=== PATIENT | male | born 2005 | race African-American/Black ===

== ENCOUNTER → 2023-10-15 | Emergency (ER) | payer OTHER, SELFPAY ==
[~2023-10-15] MED LIST: NA CHLORIDE 0.9% 1,000 ML ONE; ONDANSETRON 4 MG/2 ML VIAL ONE; cloNIDine HCL 0.1 MG TAB ONE
--- OUTSIDE RECORDS SUMMARY | 2023-10-15 03:43 | XMS REPORT | Continuity of Care Document ---
Author Name Unknown Address [address] [facility] [address] [place] [address] [facility] Address [address] [facility] [address] [place] [address] Care Team Providers Care Assistant [employer] Name Role Phone PALOMO MORALES Primary Care Physician Unavail able ROSE FERNÁNDEZ Attending Clinician Unavailable Rose Schmitz Attending Clinician Doctor Unassigned, Ursa Attending Clinician U PALOMO Fam Attending Clinician UnavailÁNGEL Calero Attending Clinician Unavailable Pob1, Acute Care Clinic Attending Clinician Unav ailable Lab, Adc Fam Pob I Attending Clinician Unavailab HINA Roberto Attending Clinician Unavailable Arabella Mcdowell MD Attending Clinician [phone]- [phone] PALOMO MORALES Admitting Clinician Unavailadelfo e Payers Payer Name Policy Type Policy Number Effective Date Expirati on Date Source [facility] [id number] 2017 00:00:00 2 W [id number] Problems Condition Name Condition Details Condition Category Status Onset Date Resolution Date Last Treatment Date Treating Clinician Comments Source No known active problems No known active problems Disease Univers [facility] Allergies, Adverse Reactions, Alerts Allergy Name Allergy Type Status Severity Reaction(s) Onset Date Inactive Date Treating Clinician Comments Source Denies latex allergy Miscella neous Allergy Active U Not Specified 2020-10 05:21: 59 Michelle Read l Denies latex allergy Miscella neous Allergy Active U Not Specified 2020-10 05:21: 59 Michelle Read l Denies latex allergy Miscella neous Allergy Active U Not Specified 2020-10 05:21: 59 Michelle Read l No Known Allergie s NA Active 2020-10 03:09: 31 Michelle teague Memoria l NO KNOWN ALLERGIE S Drug Class Active [facility] Social History Social Habit Start Date Stop Date Quantity Comments Source Exposure to SARS-CoV-2 (event) 2022-11-12 00:00:00 2022-11-22 15:50:00 Not sure [facility] Tobacco use and exposure 2022-11-22 00:00:00 2022-11-22 00:00:00 Smokeless tobacco non-user [facility] Alcohol intake 2022-11-22 00:00:00 2022-11-22 00:00:00 Current drinker of alcohol (finding) [facility] Sex Assigned At 2005 00:00:00 2005 00:00:00 [facility] Smoking Status Start Date Stop Date Source Never smoked tobacco [facility] Medications Ordered Medication Name Filled Medication Name Start Date Stop Date Current Medication? Ordering Clinician Indication Dosage Frequency Signature (SIG) Comments Components Source amoxicillin -clavulanat e (AUGMENTIN) 875-125 mg per tablet 11-22 00:00: 00 11-30 05:59 :00 No [id number] 1{tbl} Take 1 tablet by mouth in the morning and 1 tablet in the evening. Do all this for 7 days. [facility] amoxicillin -clavulanat e (AUGMENTIN) 875-125 mg per tablet 11-22 00:00: 00 11-30 05:59 :00 No [id number] 1{tbl} Take 1 tablet by mouth in the morning and 1 tablet in the evening. Do all this for 7 days. [facility] No known medications 06-10 13:46: 02 No No known medication s [facility] Vital Signs Vital Name Observation Time Observation Value Comments Sangeetha guerrero Systolic blood pressure 2022-11-22 22:05:00 149 mm[Hg] [place] [facility] Diastolic blood pressure 2022-11-22 22:05:00 81 mm[Hg] [facility] Heart rate 2022-11-22 22:00:00 67 /min [facility] Body height 2022-11-22 22:00:00 179.1 cm [facility] Body weight 2022-11-22 22:00:00 83.28 kg [facility] BMI 2022-11-22 22:00:00 25.97 kg/m2 [facility] Oxygen saturation in Arterial blood by Pulse oximetry 2022-11-22 22:00:00 99 /min [facility] Systolic blood pressure 2022-06-10 18:22:00 120 mm[Hg] [facility] Diastolic blood pressure 2022-06-10 18:22:00 66 mm[Hg] [facility] BMI 2022-06-10 18:20:00 24.87 kg/m2 [facility] Oxygen saturation in Arterial blood by Pulse oximetry 2022-06-10 18:20:00 97 /min [facility] Heart rate 2022-06-10 18:20:00 73 /min [facility] Body height 2022-06-10 18:20:00 177.8 cm [facility] Body weight 2022-06-10 18:20:00 78.608 kg [facility] Encounters Start Date/Time End Date/Time Encounter Type Admission Type Attending Clinicians Care Facility Care Department Encounter ID Source 2022-12-24 15:00:00 2022-12-24 15:00:00 Outpatient ROSE LUCERO [facility] [id number] [facility] 2022-11-22 16:00:00 2022-11-22 16:38:09 Outpatient ROSE LUCERO [facility] [id number] [facility] 2022-11-22 16:00:00 2022-11-22 16:38:09 [facility] [id number] [facility] 2022-06-10 13:00:00 2022-06-10 13:51:12 [id number] 2022-06-10 13:00:00 2022-06-10 13:51:12 [facility] [id number] [id number] [id number] [facility] 2022-06-10 00:00:00 2022-06-10 00:00:00 Orders Only Doctor Unassigned, Ursa [facility] [id number] [id number] [id number] [facility] 2021-09-05 09:09:00 2021-09-05 15:48:00 [facility] [id number] 03:09:00 2021-09-05 09:48:00 Emergency 1 [facility] [id number] Michelle awad 2021-02-06 14:20:00 2021-02-06 14:20:00 Outpatient ÁNGEL BROWN [facility] [id number] [facility] 2021-01-13 14:20:00 2021-01-13 14:20:00 Outpatient ÁNGEL BROWN [facility] [id number] [facility] 2020-04-30 00:00:00 2020-04-30 00:00:00 Telephone Pob1, Acute Care Clinic [facility] 1..114 [id number] [id number] [id number] [facility] 2020-04-28 12:58:49 2020-04-28 13:18:49 Laboratory Only Lab, Adc Fam Pob I Pradeep, Rose [facility] 1.114 [id number] [id number] [id number] [facility] 2020-04-28 13:00:00 2020-04-28 13:00:00 Outpatient R [facility] [id number] [facility] 2019-12-12 16:00:00 2019-12-12 16:00:00 Outpatient R HINA BELL [facility] [id number] [facility] 2019-05-02 00:00:00 2019-05-02 00:00:00 Telephone Arabella Saunders [facility] 1..114 [id number] [id number] [id number] [facility] 2019-05-01 00:00:00 2019-05-01 00:00:00 Orders Only Doctor Unassigned, Ursa [facility] [id number] [id number] [id number] [id number] [facility] 2019-05-01 00:00:00 2019-05-01 00:00:00 Telephone Arabella Saunders [facility] 1.20.114 [id number] [id number] [id number] [facility]
[2023-10-15 04:10] LABS: Absolute Lymphocytes (CBC) 2.2 K/uL (0.7-4.9); Hematocrit 44.6 % (39.6-49.0); Lymphocytes % 16.7 % (15.3-44.8); MCV 87.6 fL (80-100); MPV 9.5 fL (7.6-11.3); Platelets 251 thou/uL (152-406); RBC Red Blood Cell Count 5.09 M/uL (4.33-5.43)
[2023-10-15 04:33] LABS: Bilirubin Direct 0.1 mg/dL (0-0.2); Bilirubin Indirect, Calculated 0.3 mg/dL (0.2-0.8); Bilirubin Total 0.4 mg/dL (0.2-1.0); Magnesium 2.1 mg/dL (1.6-2.4); Potassium 3.2 mEq/L (3.5-5.1); Protein, Total 8.3 g/dL (6.4-8.2); Troponin High Sensitivity 12.8 pg/mL (<58.9)
[2023-10-15 05:58] LABS: Barbiturates NEGATIVE (NEGATIVE); Benzodiazepines NEGATIVE (NEGATIVE); Cocaine NEGATIVE (NEGATIVE); METHAMPHETAM NEGATIVE (NEGATIVE); Methadone NEGATIVE (NEGATIVE); Opiates NEGATIVE (NEGATIVE); Phencyclidine NEGATIVE (NEGATIVE); THC Cannibis POSITIVE (NEGATIVE)
--- NOTE | 2023-10-15 06:26 | ER ---
Nurse's Notes [facility] Name: Curtis Littlejohn Age: 18 yrs Sex: Male : 2005 Arrival Date: 10/15/2023 Time: 03:40 Bed 7 Private MD: Diagnosis: Acute fentanyl overdose, hyperglycemia Presentation: 10/15 03:45 Chief complaint: Patient states: Found down and unresponsive in room by family after la4 doing marijuana mixed w/ fentanyl last night with a friend. Friend was still on scene and asymptomatic. Pt given intranasal Narcan 2 mg x1 prior to EMS arrival. Coronavirus screen: Vaccine status: Patient reports being unvaccinated. Ebola Screen: Patient negative for fever greater than or equal to 101.5 degrees Fahrenheit, and additional compatible Ebola Virus Disease symptoms Patient denies exposure to infectious person. Patient denies travel to an Ebola-affected area in the 21 days before illness onset. No symptoms or risks identified at this time. Initial Sepsis Screen: Does the patient meet any 2 criteria? No. Patient's initial sepsis screen is negative. Does the patient have a suspected source of infection? No. Patient's initial sepsis screen is negative. Risk Assessment: Do you want to hurt yourself or someone else? Patient reports no desire to harm self or others. Onset of symptoms was October 15, 2023. Care prior to arrival: Medication(s) given: Narcan 2 mg IV initiated. 18 GA, in the right antecubital area. Activity prior to arrival: None. Mechanism of Injury: No Mechanism of Injury. Transition of care: patient was not received from another setting of care. 03:45 Method Of Arrival: EMS: [facility] la4 03:45 Acuity: HUNTER 2 la4 Triage Assessment: 03:48 General: Appears in no apparent distress. Behavior is calm, cooperative, appropriate la4 for age. Pain: Denies pain. EENT: No deficits noted. No signs and/or symptoms were reported regarding the EENT system. Neuro: Level of Consciousness is awake, alert, obeys commands, Oriented to person, place, time, situation, Appropriate for age Denies blurred vision. Cardiovascular: No deficits noted. Reports None Heart tones S1 S2 Capillary refill < 3 seconds is brisk Patient's skin is warm and dry. Pulses are all present. Edema is absent. Rhythm is sinus rhythm. Respiratory: No deficits noted. Airway is patent Trachea midline Respiratory effort is even, unlabored, Respiratory pattern is regular, symmetrical, Breath sounds are clear bilaterally. GI: No deficits noted. Abdomen is flat, non-distended, Bowel sounds present X 4 quads. Abd is soft and non tender. : No deficits noted. No signs and/or symptoms were reported regarding the genitourinary system. Derm: No deficits noted. No signs and/or symptoms reported regarding the dermatologic system. Musculoskeletal: No deficits noted. No signs and/or symptoms reported regarding the musculoskeletal system. Injury Description:. Historical: - Allergies: 03:48 No Known Allergies; la4 - Home Meds: 03:48 None [Active]; la4 - Immunization history:: Adult Immunizations unknown. - Social history:: Smoking status: Patient denies any tobacco usage or history of. Patient uses street drugs, marijuana, occasional use of fentanyl, Patient/guardian denies using IV drugs. - Family history:: not pertinent. - Code Status:: Full code. Screenin:53 [facility] ED Fall Risk Assessment (Adult) History of falling in the last 3 months, la4 including since admission No falls in past 3 months (0 pts) Confusion or Disorientation No (0 pts) Intoxicated or Sedated Yes (3 pts) Impaired Gait No (0 pts) Mobility Assist Device Used No (0 pt) Altered Elimination No (0 pt) Score/Fall Risk Level 3 or more points = High Risk Oriented to surroundings, Maintained a safe environment, Educated pt \T\ family on fall prevention, incl call for assistance when getting out of bed, Provided non-skid footwear, Hourly rounding (assess needs \T\ fall precautionary measures) done. Abuse screen: Denies threats or abuse. Denies injuries from another. Nutritional screening: No deficits noted. Tuberculosis screening: No symptoms or risk factors identified. Assessment: 03:52 Reassessment: Pt awake and able to stand and transfer from EMS stretcher to ED la4 stretcher w/ stable gait. No distress noted. Reassessment: No changes from previously documented assessment. General: Appears in no apparent distress. Behavior is calm, cooperative, appropriate for age. Pain: Denies pain. Neuro: No deficits noted. Narvaez Agitation-Sedation Scale (RASS): 0 - Alert and Calm Level of Consciousness is awake, alert, obeys commands, Oriented to person, place, time, situation. 04:04 Reassessment: Family and friend who found pt down arrived to facility and states that la4 the patient only smoked marijuana. Denies any other drugs. 04:08 Reassessment: Pt trembling and had episode of emesis. Pt continues to deny use of any la4 other drug other than marijuana. Explained that Narcan was given which is a drug to reverse narcotics but pt continues to deny use. 05:48 Cardiovascular: No deficits noted. Heart tones S1 S2 Rhythm is sinus bradycardia. la4 Respiratory: No deficits noted. Airway is patent Respiratory effort is even, unlabored, Respiratory pattern is regular, symmetrical, Breath sounds are clear bilaterally. GI: No deficits noted. No signs and/or symptoms were reported involving the gastrointestinal system. : No deficits noted. No signs and/or symptoms were reported regarding the genitourinary system. EENT: No deficits noted. No signs and/or symptoms were reported regarding the EENT system. Derm: No deficits noted. No signs and/or symptoms reported regarding the dermatologic system. Musculoskeletal: No deficits noted. No signs and/or symptoms reported regarding the musculoskeletal system. Vital Signs: 03:44 BP 154 / 109; Pulse 89; Resp 15; Temp 98.4(O); Pulse Ox 100% ; Weight 83.91 kg; Height nw1 5 ft. 10 in. ; 03:45 BP 154 / 109; Pulse 93; Resp 16; Temp 98.4; Pulse Ox 100% ; Weight 83.91 kg; Height 5 la4 ft. 10 in. ; Pain 0/10; 04:08 BP 149 / 104; Pulse 76; Resp 20; Pulse Ox 100% ; la4 05:45 BP 135 / 82; Pulse 52; Resp 18; Pulse Ox 100% ; la4 05:48 BP 135 / 82; Pulse 53; Resp 18; Pulse Ox 100% on 2 lpm NC; Pain 0/10; la4 06:28 BP 117 / 73; Pulse 56; Resp 16; Pulse Ox 99% ; la4 03:45 Body Mass Index 26.54 (83.91 kg, 177.8 cm) la4 03:45 Pain Scale: Adult la4 05:48 Pain Scale: Adult la4 Vitals: 04:08 Cardiac Rhythm Assessment Regular Sinus rhythm. la4 [place] Coma Score: 04:08 Eye Response: spontaneous(4). Motor Response: obeys commands(6). Verbal Response: la4 oriented(5). Total: 15. 06:28 Eye Response: spontaneous(4). Motor Response: obeys commands(6). Verbal Response: la4 oriented(5). Total: 15. ED Course: 03:41 Patient arrived in ED. la4 03:45 Arline Dixon, RN is Primary Nurse. la4 03:48 Triage completed. la4 03:48 Arm band placed on right wrist. Patient placed in an exam room, on a stretcher, on la4 monitor technician, on pulse oximetry. EKG completed in triage. Results shown to MD. EKG done per protocol. Performed by ED Staff. Shown to ED physician. Labs ordered per protocol. Drawn by ED staff. 03:49 Esteban Corbett MD is Attending Physician. sp4 03:53 Patient has correct armband on for positive identification. Placed in gown. Bed in low la4 position. Call light in reach. Side rails up X2. Provided Education on: Plan of care. Client placed on continuous cardiac and pulse oximetry monitoring. NIBP monitoring applied. 03:53 EKG done, by ED staff, reviewed by Esteban Corbett MD. wm 04:08 mother and brother at bedside. la4 04:08 No provider procedures requiring assistance completed. Maintain EMS IV. Dressing la4 intact. Good blood return noted. Site clean \T\ dry. Gauge \T\ site: 18 gauge right AC. IV is patent, is intact, with good blood return, Flushed right antecubital saline lock. Oxygen administration via nasal cannula \T\ 2L/min Response to oxygen therapy: oxygen supplied for support. 06:28 IV discontinued, intact, bleeding controlled, No redness/swelling at site. Pressure la4 dressing applied. Administered Medications: 04:26 Drug: Ondansetron IVP 4 mg IVP once; over 2 minutes Route: IVP; Site: right antecubital;la4 05:46 Follow up: Response: No adverse reaction; Nausea is decreased la4 04:26 Drug: cloNIDine PO 0.2 mg PO once Route: PO; la4 05:45 Follow up: BP 135 / 82; Pulse 52 bpm; Resp 18 bpm; Pulse Ox 100% ; Response: No adverse la4 reaction; Blood pressure is lowered 04:26 Drug: NS 0.9% IV 1000 ml IV at 1 bolus Per protocol; 1000 mL bolus Route: IV; Rate: 1 la4 bolus; Site: right antecubital; 05:45 Follow up: Response: No adverse reaction; Marked relief of symptoms; IV Status: la4 Completed infusion; IV Intake: 1000ml 06:41 Follow up: IV Status: Completed infusion; IV Intake: 1000ml la4 Medication: 03:53 VIS not applicable for this client. la4 Intake: 05:45 IV: 1000ml; Total: 1000ml. la4 06:41 IV: 1000ml; Total: 2000ml. la4 Output: 05:48 Urine: 300ml (Voided); Total: 300ml. la4 Outcome: 06:25 Discharge ordered by . sp4 06:28 Discharged to home with family, la4 06:28 Condition: stable 06:28 Discharge instructions given to patient, mother Instructed on discharge instructions, follow up and referral plans. no drinking with medication, medication usage, Demonstrated understanding of instructions, follow-up care, medications, Prescriptions given X 1, 06:42 Patient left the ED. la4 Signatures: Latanya Cosme Sergey, MD MD sp4 Arline Dixon RN RN la4 Christine Klein RN RN nw1
--- NOTE | 2023-10-15 06:26 | EDPHYS ---
Physician Documentation [facility] Name: Curtis Littlejohn Age: 18 yrs Sex: Male : 2005 Arrival Date: 10/15/2023 Time: 03:40 Bed 7 Private MD: ED Physician Esteban Corbett HPI: 10/15 03:53 This 18 yrs old Black Male presents to ER via EMS with complaints of overdose of sp4 Fentanyl . 03:55 18-year-old male brought in by EMS, found unresponsive by his brother at home, after sp4 acute overdose presumably on fentanyl. Patient has admitted that he has crushed and snorted [address] fentanyl tablet that was blue in color. Patient was administered intranasal Narcan 2 mg by EMS crew. On arrival patient appears tremulous and is nauseated.. Historical: - Allergies: 03:48 No Known Allergies; la4 - Home Meds: 03:48 None [Active]; la4 - Immunization history:: Adult Immunizations unknown. - Social history:: Smoking status: Patient denies any tobacco usage or history of. Patient uses street drugs, marijuana, occasional use of fentanyl, Patient/guardian denies using IV drugs. - Family history:: not pertinent. - Code Status:: Full code. ROS: 03:55 Constitutional: Negative for fever, chills, and weight loss, positive overdose, sp4 positive tremor, positive nausea 03:55 All other systems are negative, Exam: 03:55 Constitutional: This is a well developed, well nourished patient who is awake, alert, sp4 tremulous appearing, nauseated, otherwise no acute distress Head/Face: Normocephalic, atraumatic. Eyes: Pupils equal round and reactive to light, extra-ocular motions intact. Lids and lashes normal. Conjunctiva and sclera are not injected. Cornea within normal limits. Periorbital areas with no swelling, redness, or edema. ENT: Nares patent. No nasal discharge, no septal abnormalities noted. Tympanic membranes are normal and external auditory canals are clear. Oropharynx with no redness, swelling, or masses, exudates, or evidence of obstruction, uvula midline. Mucous membranes moist. Neck: Trachea midline, no thyromegaly or masses palpated, and no cervical lymphadenopathy. Supple, full range of motion without nuchal rigidity, or vertebral point tenderness. Chest/axilla: Normal chest wall appearance and motion. Nontender with no deformity. No lesions are appreciated. Cardiovascular: Regular rate and rhythm with a normal S1 and S2. No gallops, murmurs, or rubs. Normal PMI, no JVD. No pulse deficits. Respiratory: Lungs have equal breath sounds bilaterally, clear to auscultation and percussion. No rales, rhonchi or wheezes noted. No increased work of breathing, no retractions or nasal flaring. Abdomen/GI: Soft, non-tender, with normal bowel sounds. No distension or tympany. No guarding or rebound. No evidence of tenderness throughout. Back: No spinal tenderness. No costovertebral tenderness. There is sacral decubitus ulcer that is covered by the wound VAC. Skin: Warm, dry with normal turgor. Normal color with no rashes, no lesions, and no evidence of cellulitis. MS/ Extremity: Pulses equal, no cyanosis. Neurovascular intact. Full, normal range of motion. Neuro: Awake and alert, GCS 15, oriented to person, place, time, and situation. Cranial nerves II-XII grossly intact. Motor strength 5/5 in all extremities. Sensory grossly intact. Psych: Awake, alert, with orientation to person, place and time. Behavior, mood, and affect are within normal limits 03:57 ECG was reviewed by the Attending Physician. Normal sinus rhythm at a rate of 84, no ST sp4 elevation or depression, no ectopy. Vital Signs: 03:44 BP 154 / 109; Pulse 89; Resp 15; Temp 98.4(O); Pulse Ox 100% ; Weight 83.91 kg; Height nw1 5 ft. 10 in. ; 03:45 BP 154 / 109; Pulse 93; Resp 16; Temp 98.4; Pulse Ox 100% ; Weight 83.91 kg; Height 5 la4 ft. 10 in. ; Pain 0/10; 04:08 BP 149 / 104; Pulse 76; Resp 20; Pulse Ox 100% ; la4 05:45 BP 135 / 82; Pulse 52; Resp 18; Pulse Ox 100% ; la4 05:48 BP 135 / 82; Pulse 53; Resp 18; Pulse Ox 100% on 2 lpm NC; Pain 0/10; la4 06:28 BP 117 / 73; Pulse 56; Resp 16; Pulse Ox 99% ; la4 03:45 Body Mass Index 26.54 (83.91 kg, 177.8 cm) la4 03:45 Pain Scale: Adult la4 05:48 Pain Scale: Adult la4 Corey Coma Score: 04:08 Eye Response: spontaneous(4). Motor Response: obeys commands(6). Verbal Response: la4 oriented(5). Total: 15. 06:28 Eye Response: spontaneous(4). Motor Response: obeys commands(6). Verbal Response: la4 oriented(5). Total: 15. MDM: 04:07 Patient medically screened. sp4 06:23 Differential Diagnosis altered mental status, sepsis, flu, Unintentional overdose sp4 opiate . Data reviewed: vital signs, nurses notes, EMS record, lab test result(s), EKG. Consideration of Admission/Observation Escalation of care including admission/observation considered. ED course: Patient presents with acute fentanyl overdose. Patient was monitored in the emergency room for 3 hours. Patient was not given any extra Narcan now improved to be hemodynamically stable with normal oxygen saturation. At this time patient is stable for discharge home with prescription for as needed Narcan intranasal spray. Wrongly advised patient to stay away from fentanyl and other recreational drugs. . 10/15 03:54 Order name: Basic Metabolic Panel; Complete Time: 06:19 10/15 03:54 Order name: CBC with Diff; Complete Time: 06:19 10/15 03:54 Order name: LFT's; Complete Time: 06:19 10/15 03:54 Order name: Magnesium; Complete Time: 06:19 10/15 03:54 Order name: Troponin HS; Complete Time: 06:19 10/15 03:54 Order name: Urine Drug Screen; Complete Time: 06:19 10/15 03:54 Order name: EKG; Complete Time: 03:54 10/15 03:54 Order name: Cardiac monitoring; Complete Time: 03:56 10/15 03:54 Order name: EKG - Nurse/Tech; Complete Time: 03:56 10/15 03:54 Order name: IV Saline Lock; Complete Time: 03:57 10/15 03:54 Order name: Labs collected and sent; Complete Time: 03:57 10/15 03:54 Order name: O2 Per Protocol; Complete Time: 03:57 sp4 10/15 03:54 Order name: O2 Sat Monitoring; Complete Time: 03:56 sp4 EC:57 Rate is 84 beats/min. Rhythm is regular, Normal Sinus Rhythm. QRS [place] is Normal. [place] sp4 interval is normal. QRS interval is normal. QT interval is normal. No Q waves. T waves are Normal. No ST changes noted. Clinical impression: Normal ECG. Interpreted by me. Reviewed by me. Administered Medications: 04:26 Drug: Ondansetron IVP 4 mg IVP once; over 2 minutes Route: IVP; Site: right antecubital;la4 05:46 Follow up: Response: No adverse reaction; Nausea is decreased la4 04:26 Drug: cloNIDine PO 0.2 mg PO once Route: PO; la4 05:45 Follow up: BP 135 / 82; Pulse 52 bpm; Resp 18 bpm; Pulse Ox 100% ; Response: No adverse la4 reaction; Blood pressure is lowered 04:26 Drug: NS 0.9% IV 1000 ml IV at 1 bolus Per protocol; 1000 mL bolus Route: IV; Rate: 1 la4 bolus; Site: right antecubital; 05:45 Follow up: Response: No adverse reaction; Marked relief of symptoms; IV Status: la4 Completed infusion; IV Intake: 1000ml 06:41 Follow up: IV Status: Completed infusion; IV Intake: 1000ml la4 Disposition Summary: 10/15/23 06:25 Discharge Ordered Problem: new sp4 Symptoms: have improved sp4 Condition: Stable sp4 Diagnosis - Acute fentanyl overdose, hyperglycemia sp4 Followup: sp4 - With: Private Physician - When: 7 - 10 days - Reason: Recheck today's complaints Discharge Instructions: - Discharge Summary Sheet sp4 - Opioid Overdose sp4 Forms: - Work release form eb - Patient Portal Instructions sp4 Prescriptions: - Narcan 4 mg/actuation Nasal spray, non-aerosol - spray 1 spray INTRANASAL route every 3 minutes spray 1 dose into ONE nostril; sp4 alternate nostrils w each dose until help arrives; 1 unit; Refills: 0, Product Selection Permitted Signatures: Dispatcher [facility] Esteban Mcneil MD MD sp4 Arline Dixon RN RN la4
[2023-10-15 09:36] VITALS: BP 117/73; TEMP 98.4; O2SAT 99
--- NOTE | 2023-10-17 17:05 | EKG ---
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
== END ==
LOC: ER 03:40
DX: T40.411A Poisoning by fentanyl or fentanyl analogs, accidental (unintentional), initial encounter (principal); R73.9 Hyperglycemia, unspecified
CPT/HCPCS: 36415; 80048; 80076; 80307; 83735; 84484; 85025; 93005; 96361; 96374; 99285; J2405; J7030